=== PATIENT | female | born 1935 | race Caucasian/White ===

== ENCOUNTER 2017-03-15 09:10 | Emergency (ER) | payer OTHER, BC ==
[~2017-03-15] VITALS: Ht 157.5 cm; Wt 49.4 kg
[2017-03-15] MEDS ORDERED: PEPCID20 MG PO (13:11)
[2017-03-15] MEDS ORDERED: MEDROL DOSEPAK4 MG PO (13:11)
[2017-03-15] MEDS ORDERED: BENADRYL25 MG PO (13:11)
[2017-03-15 13:43] VITALS: BP 113/63
== END 2017-03-15 13:45 | disposition home or self-care (01) ==
LOC: EME 09:10
DX: T78.40XA Allergy, unspecified, initial encounter (principal); Z88.8 Allergy status to other drugs, medicaments and biological substances; E78.5 Hyperlipidemia, unspecified; I10 Essential (primary) hypertension
CPT/HCPCS: 99281; 99285; J1200; J2930; J7030; S0028